=== PATIENT | female | born 1955 | race Caucasian/White ===

== ENCOUNTER 2021-05-17 07:14 | Inpatient (IN) ==
[~2021-05-17 07:14] MED LIST: ceFAZolin 1,000 MG, Sodium Chloride IRRigation 1,000 ML IR ONE
[2021-05-17] MEDS ORDERED: CeFAZolin Syr 2,000MG/20 ML 2,000 MG/20 ML SYRINGE IVPB ONE (07:43)
[2021-05-17] MEDS ORDERED: *HR* OxyCODONE Immed Rel 5 MG TABLET PO PRN ×2 (07:48→11:15)
[2021-05-17] MEDS ORDERED: Ondansetron 4 MG/2 ML VIAL IVP PRN ×2 (07:48→11:11)
[2021-05-17] MEDS ORDERED: Promethazine 6.25 MG in Water for inj. (sterile) 20 ML IVPB PRN (07:48)
[2021-05-17] MEDS: Ringers Solution, Lactated 1,000 ML IVC SCH (08:00)
[2021-05-17] MEDS ORDERED: Lidocaine HCL 4 ML Topical Solution (Laryng-O-Jet Kit Sterile Pak) TP ONE (08:02)
[2021-05-17] MEDS ORDERED: Ketamine HCL *QUVA* 50mg (1mL) SYRINGE ONE (08:06)
[2021-05-17] MEDS ORDERED: *HR* Vasopressin 20 UNIT/ML VIAL ONE (08:06)
[2021-05-17] MEDS ORDERED: Dexmedetomidine HCl 400 MCG/100 ML MLS IVC ONE (08:06)
[2021-05-17] MEDS ORDERED: *HR* HYDROMORPHONE 2 MG/ML VIAL ONE (08:07)
[2021-05-17] MEDS ORDERED: *HR* FentaNYL (PF) 100 MCG/2 ML VIAL ONE (08:07)
[2021-05-17] MEDS ORDERED: *HR* Magnesium Sulfate 1 GM/2 ML VIAL ONE (08:08)
[2021-05-17] MEDS ORDERED: *HR* Rocuronium Bromide 50 MG/5 ML VIAL ONE ×2 (08:08→09:48)
[2021-05-17] MEDS ORDERED: Ondansetron 4 MG/2 ML VIAL ONE (08:08)
[2021-05-17] MEDS ORDERED: Lidocaine -MPF 2% 5 ML VIAL ONE (08:08)
[2021-05-17] MEDS ORDERED: *HR* Succinylcholine 200 MG/10 ML VIAL IVP ONE (08:08)
[2021-05-17] MEDS ORDERED: Sugammadex Sodium 200 MG/2 ML VIAL IV ONE (08:08)
[2021-05-17] MEDS ORDERED: *HR* Propofol 200 MG/20 ML VIAL IVP ONE (08:11)
[2021-05-17] MEDS ORDERED: Acetaminophen IV 1,000 MG/100 ML BAG IVPB ONE ×2 (08:31→09:20)
[2021-05-17] MEDS ORDERED: Ketorolac 30 MG/ML VIAL ONE (09:14)
[2021-05-17] MEDS ORDERED: Ketorolac 30 MG/ML VIAL IVP PRN (11:11)
[2021-05-17] MEDS ORDERED: *HR* HYDROmorphone (PF) 1 MG/ML SYRINGE IVP PRN (11:16)
[2021-05-17] MEDS: *HR* HYDROmorphone PF 0.5 MG/0.5 ML SYRINGE IVP PRN ×3 (11:30→12:30)
[2021-05-17] MEDS ORDERED: Albuterol 2.5 MG/3 ML NEBULIZER IH ONE (11:50)
[2021-05-17] MEDS ORDERED: Albuterol 2.5 MG/3 ML NEBULIZER ONE (11:54)
[2021-05-17] MEDS: 0.9 % Sodium Chloride 1,000 ML IVC SCH (13:50)
[2021-05-17] MEDS: Acetaminophen IV 1,000 MG/100 ML BAG IVPB SCH ×2 (14:55→19:51)
[2021-05-17] MEDS: CeFAZolin 2 GM/120 ML BAG IVPB SCH (18:32)
[2021-05-17] MEDS: Ondansetron 4 MG/2 ML VIAL IVP PRN (23:01)
[2021-05-18] MEDS: CeFAZolin 2 GM/120 ML BAG IVPB SCH (00:41)
[2021-05-18] MEDS: 0.9 % Sodium Chloride 1,000 ML IVC SCH (00:43)
[2021-05-18] MEDS: Acetaminophen IV 1,000 MG/100 ML BAG IVPB SCH ×2 (01:37→06:10)
[2021-05-18] MEDS: Ondansetron 4 MG/2 ML VIAL IVP PRN ×2 (03:54→07:49)
[2021-05-18 05:49] LABS: Basophils % 0.1 %; Hematocrit 39.5 % (35.3-44.9); Immature Granulocytes % 0.5 % (0-4); Lymphocytes # 1.3 K/mcL (0.6-4.6); Lymphocytes % 10.2 %; Mean Corpuscular HGB Conc 33.4 g/dL (31.6-35.5); Mean Corpuscular Hemoglobin 30.1 pg (28.0-33.3); Mean Corpuscular Volume 90.2 fL (83.0-100.0); Mean Platelet Volume 9.7 fL (9.4-12.4); Monocytes # 1.1 K/mcL (0.0-1.3); Monocytes % 8.8 %; Platelet Count 260 K/mcL (140-400); Red Blood Count 4.38 M/mcL (3.82-4.97); Red Cell Distribution Width 13.4 % (11.5-14.5); Segmented Neutrophils % 80.4 %
[2021-05-18 05:55] LABS: Hemoglobin 13.2 g/dL (11.5-15.4); Neutrophils # 10.1 K/mcL (1.6-8.9); White Blood Count 12.5 K/mcL (4.3-11.1)
[2021-05-18 06:16] LABS: BUN/Creatinine Ratio 22 (6-26); Blood Urea Nitrogen 13 mg/dL (8-23); Calcium 8.7 mg/dL (8.6-10.3); Carbon Dioxide 22 mEq/L (23-29); Chloride 102 mEq/L (98-107); Glucose 148 mg/dL (70-105); Osmolality,Calculated 281 (280-300); Potassium 3.6 mEq/L (3.5-5.1); Sodium 134 mEq/L (136-145); eGFR For African Americans > 60 (> 60); eGFR For Non-African Americans > 60 (> 60)
[2021-05-18] MEDS ORDERED: Prochlorperazine 10 MG/2 ML VIAL IVP PRN ×2 (07:33→14:27)
[2021-05-18] MEDS ORDERED: *HR* Meperidine 25 MG/ML SYRINGE IVP PRN (09:33)
[2021-05-18] MEDS ORDERED: *HR* HYDROmorphone PF 0.5 MG/0.5 ML SYRINGE IVP PRN ×2 (09:33→14:27)
[2021-05-18] MEDS ORDERED: Albuterol 2.5 MG/3 ML NEBULIZER IH PRN ×2 (09:33→14:27)
[2021-05-18] MEDS ORDERED: Promethazine 6.25 MG in Water for inj. (sterile) 20 ML IVPB PRN (09:33)
[2021-05-18] MEDS ORDERED: Albumin Human 5% 12.5 GM/250 ML IV.SOLN ONE (09:37)
[2021-05-18] MEDS ORDERED: Lidocaine HCL 4 ML Topical Solution (Laryng-O-Jet Kit Sterile Pak) TP ONE (09:39)
[2021-05-18] MEDS ORDERED: *HR* FentaNYL (PF) 100 MCG/2 ML VIAL ONE ×2 (09:40→12:23)
[2021-05-18] MEDS ORDERED: *HR* Midazolam HCl 2 MG/2 ML VIAL ONE ×2 (09:40→13:08)
[2021-05-18] MEDS ORDERED: *HR* Propofol 200 MG/20 ML VIAL IVP ONE ×2 (09:40→12:55)
[2021-05-18] MEDS ORDERED: *HR* Rocuronium Bromide 50 MG/5 ML VIAL ONE ×3 (09:40→11:14)
[2021-05-18] MEDS ORDERED: Ondansetron 4 MG/2 ML VIAL ONE (09:40)
[2021-05-18] MEDS ORDERED: *HR* Succinylcholine 200 MG/10 ML VIAL IVP ONE (09:40)
[2021-05-18] MEDS ORDERED: Piperacillin/Tazobactam 3.375 GM in 0.9 % Sodium Chloride Mini Bag 100 ML IVPB SCH (12:00)
[2021-05-18] MEDS ORDERED: Ketorolac 30 MG/ML VIAL ONE (12:19)
[2021-05-18] MEDS ORDERED: *HR* Cisatracurium 10 MG/5 ML VIAL IV ONE (13:00)
[2021-05-18] MEDS ORDERED: Lacri-Lube 3.5 GM TUBE ONE (13:19)
[2021-05-18] MEDS ORDERED: Artificial Tears SOLN 15 ML BOTTLE BOTH EYES PRN ×2 (13:53→14:27)
[2021-05-18] MEDS ORDERED: Pantoprazole 40 MG VIAL IVP SCH (14:00)
[2021-05-18] MEDS ORDERED: Isovue-370 500 ML BOTTLE IVP ONE ×2 (14:20→15:03)
[2021-05-18] MEDS ORDERED: Saliva Stimulant 44.3ml BOTTLE PO PRN (14:27)
[2021-05-18] MEDS ORDERED: Chloraseptic Spray 177 ML BOTTLE MM PRN (14:27)
[2021-05-18] MEDS ORDERED: Ketorolac 30 MG/ML VIAL IVP PRN (14:27)
[2021-05-18] MEDS ORDERED: *HR* HYDROmorphone PCA *PREMADE* 20 MG/1MG/ML (20mL) PCA VIAL IVC PRN (14:27)
[2021-05-18] MEDS ORDERED: Orphenadrine 60 MG/2 ML VIAL IVP PRN (14:27)
[2021-05-18] MEDS ORDERED: 0.9 % Sodium Chloride 1,000 ML IVC SCH (14:27)
[2021-05-18] MEDS ORDERED: Ondansetron 4 MG/2 ML VIAL IVP PRN (14:27)
[2021-05-18] MEDS ORDERED: *HR* HYDROmorphone (PF) 1 MG/ML SYRINGE IVP PRN (14:27)
[2021-05-18] MEDS ORDERED: *HR* FentaNYL (PF) 100 MCG/2 ML VIAL IVP ONE (14:28)
[2021-05-18 15:06] LABS: ABG Base Excess 1 mEq/L (-2 to 3); ABG HCO3 27 mEq/L (21-27); ABG Oxygen Saturation 93 % (95-98); ABG PCO2 46 mmHg (35-45); ABG PH 7.38 pH Units (7.32-7.45); ABG PO2 68 mmHg (85-104); ABG TCO2 28 mEq/L (20-26); Blood Gas VT 380 cc
[2021-05-18] MEDS: FentaNYL (PF) 1,000 MCG/100 ML IV.SOLN IVC SCH (15:06)
[2021-05-18] MEDS: Fluconazole 400 MG/200 ML 400 MG/200 ML BAG IVPB SCH ×2 (15:06→17:39)
[2021-05-18] MEDS: Ringers Solution, Lactated 1,000 ML IVC SCH (15:07)
[2021-05-18] MEDS ORDERED: Artificial Tears SOLN 15 ML BOTTLE BOTH EYES SCH (16:00)
[2021-05-18] MEDS: *HR* Heparin 5,000 UNIT/ML VIAL SQ SCH (17:38)
[2021-05-18] MEDS: Artificial Tears SOLN 15 ML BOTTLE BOTH EYES SCH ×3 (17:38→23:20)
[2021-05-18] MEDS ORDERED: Acetaminophen IV 1,000 MG/100 ML BAG IVPB SCH (18:00)
[2021-05-18] MEDS: Piperacillin/Tazobactam 3.375 GM in 0.9 % Sodium Chloride Mini Bag 100 ML IVPB SCH (19:55)
[2021-05-18] MEDS ORDERED: Chlorhexidine Rinse 15 ML MOUTHWASH MM SCH (21:00)
[2021-05-18] MEDS: Chlorhexidine Rinse 15 ML MOUTHWASH MM SCH (21:53)
[2021-05-18] MEDS: Docusate Oral Soln 100 MG/10 ML UDC GTUBE SCH (21:58)
[2021-05-19] MEDS: Ringers Solution, Lactated 1,000 ML IVC SCH (03:12)
[2021-05-19] MEDS: Artificial Tears SOLN 15 ML BOTTLE BOTH EYES SCH ×6 (03:15→23:11)
[2021-05-19] MEDS: Piperacillin/Tazobactam 3.375 GM in 0.9 % Sodium Chloride Mini Bag 100 ML IVPB SCH ×3 (03:15→20:21)
[2021-05-19 04:44] LABS: ABG Base Excess 7 mEq/L (-2 to 3); ABG HCO3 32 mEq/L (21-27); ABG Oxygen Saturation 97 % (95-98); ABG PCO2 52 mmHg (35-45); ABG PH 7.41 pH Units (7.32-7.45); ABG PO2 90 mmHg (85-104); ABG TCO2 34 mEq/L (20-26); Blood Gas Modality AF; Blood Gas VT 380 cc
[2021-05-19 04:59] LABS: Basophils % 0.1 %; Immature Granulocytes % 0.2 % (0-4); Lymphocytes # 0.7 K/mcL (0.6-4.6); Lymphocytes % 7.1 %; Mean Corpuscular HGB Conc 32.6 g/dL (31.6-35.5); Mean Corpuscular Hemoglobin 29.7 pg (28.0-33.3); Mean Corpuscular Volume 90.9 fL (83.0-100.0); Monocytes % 10.8 %; Neutrophils # 7.6 K/mcL (1.6-8.9); Platelet Count 188 K/mcL (140-400); Red Blood Count 3.74 M/mcL (3.82-4.97); Red Cell Distribution Width 13.6 % (11.5-14.5); Segmented Neutrophils % 81.8 %; White Blood Count 9.3 K/mcL (4.3-11.1)
[2021-05-19 05:00] LABS: Hemoglobin 11.1 g/dL (11.5-15.4)
[2021-05-19 05:03] LABS: BUN/Creatinine Ratio 19 (6-26); Blood Urea Nitrogen 9 mg/dL (8-23); Calcium 8.3 mg/dL (8.6-10.3); Carbon Dioxide 29 mEq/L (23-29); Chloride 102 mEq/L (98-107); Glucose 125 mg/dL (70-105); Osmolality,Calculated 288 (280-300); Phosphorous 2.4 mg/dL (2.7-4.5); Sodium 139 mEq/L (136-145); eGFR For African Americans > 60 (> 60); eGFR For Non-African Americans > 60 (> 60)
[2021-05-19] MEDS: *HR* Heparin 5,000 UNIT/ML VIAL SQ SCH ×2 (05:49→17:41)
[2021-05-19] MEDS: Docusate Oral Soln 100 MG/10 ML UDC GTUBE SCH ×2 (08:51→20:21)
[2021-05-19] MEDS: Chlorhexidine Rinse 15 ML MOUTHWASH MM SCH ×2 (08:51→20:21)
[2021-05-19] MEDS: Fluconazole 400 MG/200 ML 400 MG/200 ML BAG IVPB SCH (08:51)
[2021-05-19] MEDS: Pantoprazole 40 MG VIAL IVP SCH (08:52)
[2021-05-19] MEDS ORDERED: Albuterol 2.5 MG/3 ML NEBULIZER IH PRN (08:54)
[2021-05-19] MEDS: FentaNYL (PF) 1,000 MCG/100 ML IV.SOLN IVC SCH ×2 (12:05→23:16)
[2021-05-20] MEDS: Artificial Tears SOLN 15 ML BOTTLE BOTH EYES SCH ×5 (03:16→20:00)
[2021-05-20] MEDS: Piperacillin/Tazobactam 3.375 GM in 0.9 % Sodium Chloride Mini Bag 100 ML IVPB SCH ×3 (03:18→20:00)
[2021-05-20 04:08] LABS: Basophils % 0.1 %; Eosinophils # 0.1 K/mcL (0.0-0.6); Eosinophils % 1.5 %; Hematocrit 32.9 % (35.3-44.9); Immature Granulocytes % 0.5 % (0-4); Lymphocytes # 1.3 K/mcL (0.6-4.6); Lymphocytes % 17.5 %; Mean Corpuscular HGB Conc 30.4 g/dL (31.6-35.5); Mean Corpuscular Hemoglobin 28.4 pg (28.0-33.3); Mean Corpuscular Volume 93.5 fL (83.0-100.0); Mean Platelet Volume 9.5 fL (9.4-12.4); Monocytes # 0.6 K/mcL (0.0-1.3); Monocytes % 8.3 %; Neutrophils # 5.4 K/mcL (1.6-8.9); Platelet Count 178 K/mcL (140-400); Red Blood Count 3.52 M/mcL (3.82-4.97); Red Cell Distribution Width 13.9 % (11.5-14.5); Segmented Neutrophils % 72.1 %; White Blood Count 7.5 K/mcL (4.3-11.1)
[2021-05-20] MEDS: Ringers Solution, Lactated 1,000 ML IVC SCH ×2 (04:12→07:18)
[2021-05-20 04:18] LABS: BUN/Creatinine Ratio 21 (6-26); Blood Urea Nitrogen 10 mg/dL (8-23); Carbon Dioxide 33 mEq/L (23-29); Chloride 103 mEq/L (98-107); Glucose 85 mg/dL (70-105); Magnesium 1.9 mg/dL (1.6-2.6); Osmolality,Calculated 290 (280-300); Phosphorous 2.1 mg/dL (2.7-4.5); Potassium 3.4 mEq/L (3.5-5.1); Sodium 141 mEq/L (136-145); eGFR For African Americans > 60 (> 60); eGFR For Non-African Americans > 60 (> 60)
[2021-05-20] MEDS ORDERED: Potassium Phosphate 44 MEQ in 0.9 % Sodium Chloride 250 ML IVPB PRN (04:22)
[2021-05-20] MEDS ORDERED: Calcium Gluconate 1gm/50mL 1 GM/50 ML BAG IVPB PRN (04:22)
[2021-05-20 04:48] LABS: ABG Base Excess 7 mEq/L (-2 to 3); ABG HCO3 32 mEq/L (21-27); ABG Oxygen Saturation 96 % (95-98); ABG PCO2 46 mmHg (35-45); ABG PH 7.46 pH Units (7.32-7.45); ABG PO2 79 mmHg (85-104); ABG TCO2 33 mEq/L (20-26); Blood Gas VT 380 cc
[2021-05-20] MEDS: *HR* Heparin 5,000 UNIT/ML VIAL SQ SCH ×2 (05:15→20:03)
[2021-05-20] MEDS: Acetaminophen IV 1,000 MG/100 ML BAG IVPB SCH (07:19)
[2021-05-20] MEDS: 0.9 % Sodium Chloride 1,000 ML IVC SCH (07:19)
[2021-05-20] MEDS: Fluconazole 400 MG/200 ML 400 MG/200 ML BAG IVPB SCH (07:30)
[2021-05-20] MEDS: Chlorhexidine Rinse 15 ML MOUTHWASH MM SCH ×2 (07:36→20:02)
[2021-05-20] MEDS: Docusate Oral Soln 100 MG/10 ML UDC GTUBE SCH ×2 (07:36→20:02)
[2021-05-20] MEDS: Pantoprazole 40 MG VIAL IVP SCH (07:36)
[2021-05-20] MEDS: FentaNYL (PF) 1,000 MCG/100 ML IV.SOLN IVC SCH (17:58)
[2021-05-21] MEDS: Artificial Tears SOLN 15 ML BOTTLE BOTH EYES SCH ×6 (00:01→19:39)
[2021-05-21] MEDS: Piperacillin/Tazobactam 3.375 GM in 0.9 % Sodium Chloride Mini Bag 100 ML IVPB SCH ×3 (03:48→19:29)
[2021-05-21] MEDS: *HR* Heparin 5,000 UNIT/ML VIAL SQ SCH ×2 (04:48→18:07)
[2021-05-21 05:04] LABS: ABG Base Excess 7 mEq/L (-2 to 3); ABG HCO3 33 mEq/L (21-27); ABG Oxygen Saturation 93 % (95-98); ABG PCO2 57 mmHg (35-45); ABG PH 7.38 pH Units (7.32-7.45); ABG PO2 69 mmHg (85-104); ABG TCO2 35 mEq/L (20-26); Blood Gas VT 380 cc
[2021-05-21] MEDS: FentaNYL (PF) 1,000 MCG/100 ML IV.SOLN IVC SCH (05:30)
[2021-05-21 05:34] LABS: Basophils % 0.5 %; Eosinophils # 0.2 K/mcL (0.0-0.6); Hematocrit 30.4 % (35.3-44.9); Hemoglobin 9.5 g/dL (11.5-15.4); Immature Granulocytes % 0.5 % (0-4); Lymphocytes # 1.4 K/mcL (0.6-4.6); Lymphocytes % 22.8 %; Mean Corpuscular HGB Conc 31.3 g/dL (31.6-35.5); Mean Corpuscular Hemoglobin 29.3 pg (28.0-33.3); Mean Corpuscular Volume 93.8 fL (83.0-100.0); Mean Platelet Volume 9.7 fL (9.4-12.4); Monocytes # 0.4 K/mcL (0.0-1.3); Neutrophils # 3.9 K/mcL (1.6-8.9); Platelet Count 171 K/mcL (140-400); Red Blood Count 3.24 M/mcL (3.82-4.97); Red Cell Distribution Width 13.9 % (11.5-14.5); Segmented Neutrophils % 65.2 %
[2021-05-21 05:54] LABS: BUN/Creatinine Ratio 26 (6-26); Blood Urea Nitrogen 10 mg/dL (8-23); Calcium 7.8 mg/dL (8.6-10.3); Carbon Dioxide 31 mEq/L (23-29); Chloride 104 mEq/L (98-107); Glucose 79 mg/dL (70-105); Magnesium 1.9 mg/dL (1.6-2.6); Osmolality,Calculated 288 (280-300); Phosphorous 3.1 mg/dL (2.7-4.5); Potassium 3.6 mEq/L (3.5-5.1); Sodium 140 mEq/L (136-145); eGFR For African Americans > 60 (> 60); eGFR For Non-African Americans > 60 (> 60)
[2021-05-21 07:03] LABS: VBG Ionized Calcium 1.07 mmol/L (1.15-1.35)
[2021-05-21] MEDS: Chlorhexidine Rinse 15 ML MOUTHWASH MM SCH ×2 (07:47→19:39)
[2021-05-21] MEDS: Pantoprazole 40 MG VIAL IVP SCH (07:47)
[2021-05-21] MEDS: Fluconazole 400 MG/200 ML 400 MG/200 ML BAG IVPB SCH (07:47)
[2021-05-21] MEDS: Docusate Oral Soln 100 MG/10 ML UDC GTUBE SCH ×2 (07:47→19:39)
[2021-05-21] MEDS: Ringers Solution, Lactated 1,000 ML IVC SCH (16:17)
[2021-05-21] MEDS ORDERED: Furosemide 40 MG/4 ML VIAL IVP ONE (19:24)
[2021-05-21] MEDS: D5% in Lactated Ringers 1,000 ML IVC SCH ×2 (19:37)
[2021-05-21 21:56] LABS: BUN/Creatinine Ratio 17 (6-26); Blood Urea Nitrogen 6 mg/dL (8-23); Calcium 8.1 mg/dL (8.6-10.3); Carbon Dioxide 30 mEq/L (23-29); Chloride 98 mEq/L (98-107); Glucose 115 mg/dL (70-105); Osmolality,Calculated 285 (280-300); Potassium 3.1 mEq/L (3.5-5.1); Sodium 138 mEq/L (136-145); eGFR For African Americans > 60 (> 60); eGFR For Non-African Americans > 60 (> 60)
[2021-05-22] MEDS: Artificial Tears SOLN 15 ML BOTTLE BOTH EYES SCH ×7 (00:14→20:49)
[2021-05-22] MEDS: Piperacillin/Tazobactam 3.375 GM in 0.9 % Sodium Chloride Mini Bag 100 ML IVPB SCH ×3 (03:37→17:24)
[2021-05-22] MEDS: *HR* Heparin 5,000 UNIT/ML VIAL SQ SCH ×2 (05:34→17:30)
[2021-05-22] MEDS: Pantoprazole 40 MG VIAL IVP SCH (08:10)
[2021-05-22] MEDS: Chlorhexidine Rinse 15 ML MOUTHWASH MM SCH ×3 (08:10→21:26)
[2021-05-22] MEDS: Fluconazole 400 MG/200 ML 400 MG/200 ML BAG IVPB SCH (08:10)
[2021-05-22] MEDS: Docusate Oral Soln 100 MG/10 ML UDC GTUBE SCH ×2 (08:10→20:48)
[2021-05-22] MEDS: Ringers Solution, Lactated 1,000 ML IVC SCH (11:17)
[2021-05-22] MEDS ORDERED: Potassium Phosphate 44 MEQ in 0.9 % Sodium Chloride 250 ML IVPB PRN (11:49)
[2021-05-22] MEDS ORDERED: Albuterol 2.5 MG/3 ML NEBULIZER IH PRN (11:49)
[2021-05-22] MEDS ORDERED: Orphenadrine 60 MG/2 ML VIAL IVP PRN (11:49)
[2021-05-22] MEDS ORDERED: Calcium Gluconate 1gm/50mL 1 GM/50 ML BAG IVPB PRN (11:49)
[2021-05-22] MEDS ORDERED: Ringers Solution, Lactated 1,000 ML IVC SCH (11:49)
[2021-05-22] MEDS ORDERED: Chloraseptic Spray 177 ML BOTTLE MM PRN (11:49)
[2021-05-22] MEDS ORDERED: Artificial Tears SOLN 15 ML BOTTLE BOTH EYES PRN (11:49)
[2021-05-22] MEDS ORDERED: Saliva Stimulant 44.3ml BOTTLE PO PRN (11:49)
[2021-05-22] MEDS ORDERED: Prochlorperazine 10 MG/2 ML VIAL IVP PRN (11:49)
[2021-05-22 11:51] LABS: VBG HCO3 26 mEq/L (21-27); VBG Ionized Calcium 1.05 mmol/L (1.15-1.35); VBG PCO2 32 mmHg (41-51); VBG PH 7.52 pH Units (7.32-7.42); VBG PO2 95 mmHg (25-50)
[2021-05-22 11:53] LABS: Basophils % 0.3 %; Eosinophils # 0.2 K/mcL (0.0-0.6); Eosinophils % 3.1 %; Hematocrit 35.4 % (35.3-44.9); Immature Granulocytes % 0.6 % (0-4); Lymphocytes # 0.9 K/mcL (0.6-4.6); Lymphocytes % 13.2 %; Mean Corpuscular HGB Conc 32.2 g/dL (31.6-35.5); Mean Corpuscular Hemoglobin 28.8 pg (28.0-33.3); Mean Corpuscular Volume 89.4 fL (83.0-100.0); Mean Platelet Volume 9.4 fL (9.4-12.4); Monocytes # 0.6 K/mcL (0.0-1.3); Monocytes % 8.2 %; Neutrophils # 5.3 K/mcL (1.6-8.9); Platelet Count 236 K/mcL (140-400); Red Blood Count 3.96 M/mcL (3.82-4.97); Red Cell Distribution Width 13.6 % (11.5-14.5); Segmented Neutrophils % 74.6 %; White Blood Count 7.1 K/mcL (4.3-11.1)
[2021-05-22 11:54] LABS: Hemoglobin 11.4 g/dL (11.5-15.4)
[2021-05-22 12:04] LABS: BUN/Creatinine Ratio 28 (6-26); Blood Urea Nitrogen 9 mg/dL (8-23); Calcium 8.3 mg/dL (8.6-10.3); Carbon Dioxide 27 mEq/L (23-29); Chloride 101 mEq/L (98-107); Glucose 116 mg/dL (70-105); Magnesium 1.8 mg/dL (1.6-2.6); Osmolality,Calculated 286 (280-300); Phosphorous 2.3 mg/dL (2.7-4.5); Potassium 3.4 mEq/L (3.5-5.1); Sodium 138 mEq/L (136-145); eGFR For African Americans > 60 (> 60); eGFR For Non-African Americans > 60 (> 60)
[2021-05-22] MEDS: D5% in Lactated Ringers 1,000 ML IVC SCH ×2 (13:05→18:43)
[2021-05-22] MEDS: Ondansetron 4 MG/2 ML VIAL IVP PRN (13:06)
[2021-05-22] MEDS ORDERED: *HR* HYDROmorphone (PF) 1 MG/ML SYRINGE IVP PRN (16:39)
[2021-05-23] MEDS: Artificial Tears SOLN 15 ML BOTTLE BOTH EYES SCH ×7 (01:59→23:28)
[2021-05-23] MEDS: Piperacillin/Tazobactam 3.375 GM in 0.9 % Sodium Chloride Mini Bag 100 ML IVPB SCH ×3 (01:59→17:06)
[2021-05-23 02:17] LABS: Basophils % 0.5 %; Eosinophils # 0.3 K/mcL (0.0-0.6); Eosinophils % 4.8 %; Hematocrit 32.3 % (35.3-44.9); Hemoglobin 10.5 g/dL (11.5-15.4); Immature Granulocytes % 0.6 % (0-4); Lymphocytes # 0.9 K/mcL (0.6-4.6); Lymphocytes % 14.6 %; Mean Corpuscular HGB Conc 32.5 g/dL (31.6-35.5); Mean Corpuscular Hemoglobin 29.3 pg (28.0-33.3); Mean Corpuscular Volume 90.2 fL (83.0-100.0); Mean Platelet Volume 9.4 fL (9.4-12.4); Monocytes # 0.5 K/mcL (0.0-1.3); Monocytes % 8.2 %; Neutrophils # 4.5 K/mcL (1.6-8.9); Platelet Count 237 K/mcL (140-400); Red Blood Count 3.58 M/mcL (3.82-4.97); Red Cell Distribution Width 13.6 % (11.5-14.5); Segmented Neutrophils % 71.3 %; White Blood Count 6.3 K/mcL (4.3-11.1)
[2021-05-23 02:38] LABS: BUN/Creatinine Ratio 40 (6-26); Blood Urea Nitrogen 14 mg/dL (8-23); Calcium 8.4 mg/dL (8.6-10.3); Carbon Dioxide 28 mEq/L (23-29); Chloride 105 mEq/L (98-107); Glucose 128 mg/dL (70-105); Osmolality,Calculated 296 (280-300); Potassium 3.2 mEq/L (3.5-5.1); Sodium 142 mEq/L (136-145); eGFR For African Americans > 60 (> 60); eGFR For Non-African Americans > 60 (> 60)
[2021-05-23] MEDS: *HR* Heparin 5,000 UNIT/ML VIAL SQ SCH ×2 (04:56→17:02)
[2021-05-23] MEDS: Docusate Oral Soln 100 MG/10 ML UDC GTUBE SCH ×2 (08:18→21:09)
[2021-05-23] MEDS: Chlorhexidine Rinse 15 ML MOUTHWASH MM SCH (08:18)
[2021-05-23] MEDS: Ondansetron 4 MG/2 ML VIAL IVP PRN ×2 (08:20→13:37)
[2021-05-23] MEDS: Fluconazole 400 MG/200 ML 400 MG/200 ML BAG IVPB SCH (08:20)
[2021-05-23 08:39] LABS: Magnesium 1.9 mg/dL (1.6-2.6); Phosphorous 2.9 mg/dL (2.7-4.5); Triglycerides 202 mg/dL (< 150)
[2021-05-23] MEDS ORDERED: Pantoprazole 40 MG VIAL IVP SCH (09:00)
[2021-05-23] MEDS ORDERED: Acetaminophen 325 MG TABLET PO PRN (09:44)
[2021-05-23] MEDS ORDERED: D10% in Water 500 ML IVC PRN (09:54)
[2021-05-23] MEDS: *HR* Metoprolol 5 MG/5 ML VIAL IVP SCH ×4 (10:52→23:53)
[2021-05-23] MEDS ORDERED: Clinimix E 5%-15% SOLUTION 2,000 ML with MVI, adult with vitamin K 10 ML IVC SCH (17:00)
[2021-05-24 01:04] LABS: Basophils % 0.5 %; Eosinophils # 0.3 K/mcL (0.0-0.6); Eosinophils % 4.5 %; Hematocrit 33.2 % (35.3-44.9); Hemoglobin 10.7 g/dL (11.5-15.4); Immature Granulocytes % 1.4 % (0-4); Lymphocytes # 1.3 K/mcL (0.6-4.6); Lymphocytes % 17.3 %; Mean Corpuscular HGB Conc 32.2 g/dL (31.6-35.5); Mean Platelet Volume 9.1 fL (9.4-12.4); Monocytes # 0.6 K/mcL (0.0-1.3); Monocytes % 7.2 %; Neutrophils # 5.3 K/mcL (1.6-8.9); Platelet Count 261 K/mcL (140-400); Red Blood Count 3.69 M/mcL (3.82-4.97); Red Cell Distribution Width 13.7 % (11.5-14.5); Segmented Neutrophils % 69.1 %; White Blood Count 7.6 K/mcL (4.3-11.1)
[2021-05-24 01:25] LABS: Alanine Aminotransferase 43 Units/L (7-52); Albumin 3.4 g/dL (3.5-5.7); Albumin/Globulin Ratio 1.9 (1.1-2.2); Alkaline Phosphatase 80 Units/L (34-104); Aspartate Amino Transferase 35 Units/L (13-39); BUN/Creatinine Ratio 26 (6-26); Bilirubin,Total 0.9 mg/dL (0.3-1.0); Blood Urea Nitrogen 10 mg/dL (8-23); Calcium 8.4 mg/dL (8.6-10.3); Carbon Dioxide 26 mEq/L (23-29); Chloride 105 mEq/L (98-107); Globulin 1.8 g/dL (2.4-3.5); Glucose 105 mg/dL (70-105); Magnesium 1.7 mg/dL (1.6-2.6); Osmolality,Calculated 289 (280-300); Phosphorous 3.1 mg/dL (2.7-4.5); Potassium 3.5 mEq/L (3.5-5.1); Sodium 140 mEq/L (136-145); Total Protein 5.2 g/dL (6.4-8.9); eGFR For African Americans > 60 (> 60); eGFR For Non-African Americans > 60 (> 60)
[2021-05-24] MEDS: Piperacillin/Tazobactam 3.375 GM in 0.9 % Sodium Chloride Mini Bag 100 ML IVPB SCH ×3 (02:34→16:57)
[2021-05-24] MEDS: D5% in Lactated Ringers 1,000 ML IVC SCH (02:34)
[2021-05-24] MEDS: Artificial Tears SOLN 15 ML BOTTLE BOTH EYES SCH ×6 (04:05→23:25)
[2021-05-24] MEDS: *HR* Heparin 5,000 UNIT/ML VIAL SQ SCH ×2 (06:04→16:57)
[2021-05-24] MEDS: *HR* Metoprolol 5 MG/5 ML VIAL IVP SCH ×2 (06:05→11:56)
[2021-05-24] MEDS: Ondansetron 4 MG/2 ML VIAL IVP PRN (06:17)
[2021-05-24] MEDS: amLODIPine 5 MG TABLET PO SCH (09:51)
[2021-05-24] MEDS: Docusate Oral Soln 100 MG/10 ML UDC GTUBE SCH ×2 (09:51→19:36)
[2021-05-24] MEDS: Fluconazole 400 MG/200 ML 400 MG/200 ML BAG IVPB SCH (09:51)
[2021-05-24] MEDS: Metoclopramide 20 MG in 0.9 % Sodium Chloride 50 ML IVPB SCH ×2 (12:04→19:02)
[2021-05-24] MEDS: carvediloL 6.25 MG TABLET PO SCH (16:53)
[2021-05-25 01:52] LABS: Basophils # 0.1 K/mcL (0.0-0.2); Basophils % 0.7 %; Eosinophils # 0.3 K/mcL (0.0-0.6); Eosinophils % 4.1 %; Hematocrit 31.4 % (35.3-44.9); Hemoglobin 10.1 g/dL (11.5-15.4); Immature Granulocytes % 1.4 % (0-4); Lymphocytes # 1.2 K/mcL (0.6-4.6); Lymphocytes % 15.9 %; Mean Corpuscular HGB Conc 32.2 g/dL (31.6-35.5); Mean Corpuscular Hemoglobin 29.1 pg (28.0-33.3); Mean Corpuscular Volume 90.5 fL (83.0-100.0); Mean Platelet Volume 9.3 fL (9.4-12.4); Monocytes # 0.6 K/mcL (0.0-1.3); Monocytes % 8.7 %; Platelet Count 273 K/mcL (140-400); Red Blood Count 3.47 M/mcL (3.82-4.97); Red Cell Distribution Width 13.9 % (11.5-14.5); Segmented Neutrophils % 69.2 %; White Blood Count 7.3 K/mcL (4.3-11.1)
[2021-05-25] MEDS: Metoclopramide 20 MG in 0.9 % Sodium Chloride 50 ML IVPB SCH ×2 (03:02→11:28)
[2021-05-25] MEDS: Artificial Tears SOLN 15 ML BOTTLE BOTH EYES SCH ×3 (03:02→11:29)
[2021-05-25 03:22] LABS: BUN/Creatinine Ratio 18 (6-26); Blood Urea Nitrogen 8 mg/dL (8-23); Calcium 8.1 mg/dL (8.6-10.3); Carbon Dioxide 27 mEq/L (23-29); Chloride 105 mEq/L (98-107); Glucose 105 mg/dL (70-105); Magnesium 1.7 mg/dL (1.6-2.6); Osmolality,Calculated 289 (280-300); Phosphorous 3.7 mg/dL (2.7-4.5); Potassium 3.3 mEq/L (3.5-5.1); Sodium 140 mEq/L (136-145); eGFR For African Americans > 60 (> 60); eGFR For Non-African Americans > 60 (> 60)
[2021-05-25] MEDS: *HR* Heparin 5,000 UNIT/ML VIAL SQ SCH ×2 (05:12→17:04)
[2021-05-25] MEDS: carvediloL 6.25 MG TABLET PO SCH (08:09)
[2021-05-25] MEDS: amLODIPine 5 MG TABLET PO SCH (08:09)
[2021-05-25] MEDS: Docusate Oral Soln 100 MG/10 ML UDC GTUBE SCH (08:11)
[2021-05-25] MEDS: Ipratropium/Albuterol Neb 3 ML IH SCH ×2 (15:49→20:30)
[2021-05-26] MEDS: Ipratropium/Albuterol Neb 3 ML IH SCH ×2 (04:08→07:48)
[2021-05-26] MEDS: Ondansetron 4 MG/2 ML VIAL IVP PRN (04:34)
[2021-05-26] MEDS: *HR* Heparin 5,000 UNIT/ML VIAL SQ SCH (05:15)
[2021-05-26 07:50] LABS: Basophils % 0.6 %; Eosinophils # 0.3 K/mcL (0.0-0.6); Eosinophils % 4.2 %; Hematocrit 31.4 % (35.3-44.9); Hemoglobin 10.2 g/dL (11.5-15.4); Immature Granulocytes % 1.6 % (0-4); Lymphocytes # 1.1 K/mcL (0.6-4.6); Lymphocytes % 15.8 %; Mean Corpuscular HGB Conc 32.5 g/dL (31.6-35.5); Mean Corpuscular Hemoglobin 29.2 pg (28.0-33.3); Mean Platelet Volume 9.6 fL (9.4-12.4); Monocytes # 0.6 K/mcL (0.0-1.3); Monocytes % 9.4 %; Neutrophils # 4.7 K/mcL (1.6-8.9); Platelet Count 301 K/mcL (140-400); Red Blood Count 3.49 M/mcL (3.82-4.97); Red Cell Distribution Width 14.1 % (11.5-14.5); Segmented Neutrophils % 68.4 %; White Blood Count 6.8 K/mcL (4.3-11.1)
[2021-05-26 08:11] LABS: BUN/Creatinine Ratio 21 (6-26); Blood Urea Nitrogen 8 mg/dL (8-23); Calcium 8.2 mg/dL (8.6-10.3); Carbon Dioxide 25 mEq/L (23-29); Chloride 105 mEq/L (98-107); Glucose 89 mg/dL (70-105); Osmolality,Calculated 286 (280-300); Potassium 3.7 mEq/L (3.5-5.1); Sodium 139 mEq/L (136-145); eGFR For African Americans > 60 (> 60); eGFR For Non-African Americans > 60 (> 60)
[2021-05-26] MEDS: amLODIPine 5 MG TABLET PO SCH (08:39)
[2021-05-26] MEDS ORDERED: Ibuprofen 400 MG TABLET PO PRN ×2 (09:32→13:44)
[2021-05-26] MEDS ORDERED: *HR* OxyCODONE/APAP 5/325 TABLET PO PRN ×2 (09:32→13:44)
[2021-05-26 11:26] VITALS: BP 142/61; PULSE 83; TEMP 98.4
[2021-05-26 11:42] VITALS: O2SAT 90
[2021-05-26] MEDS ORDERED: Acetaminophen 325 MG TABLET PO PRN (13:44)
[2021-05-26] MEDS ORDERED: cephALEXin 500 MG CAPSULE PO SCH ×2 (15:00→17:00)
== END 2021-05-26 15:05 | disposition home health service (06) | DRG 907 ==
LOC: SAMDAY 07:14 → 3ANU 13:00 → SUATTDRO 05-18 10:54 → ICNU 05-18 13:50 → 2NENU 05-22 13:02
PROVIDERS: ADMIT Surgery; ATTEND General Practice